=== PATIENT | female | born 1955 | race Caucasian/White ===

== ENCOUNTER → 2016-06-07 | Day surgery (SDC) | payer OTHER ==
[~2016-06-07] VITALS: Ht 154.9 cm; Wt 73.9 kg
[~2016-06-07] MED LIST: TOPROL XL25 M1 PO
--- NOTE | 2016-06-07 17:54 | Operative Report ---
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 The patient has had significant shrinkage of the right breast following surgical intervention for cancer treatment as well as postoperative radiation. She has undergone some reconstruction of the left breast fact grafting technique. She would like to do additional fat grafting in order to build a more natural breast without the need for implants considering her history of radiation. Autologous tissue transfer. Talked about the risks which included but were not limited to infection bleeding pain and numbness in the area of fat harvest loss of fat harvest nipple areola sensibility changes or tissue loss injury to deeper or surrounding structures during live postreduction pin. Once this was agreed to informed consent was Signed. She was marked in the standing position. She was brought to the operating room placed supine on the table. Intravenous antibiotics and anesthesia was started. The abdomen and left breast were prepped and draped in usual sterile fashion. Tumescent fluid was placed in the abdominal wall and liposuction was carried out. The fat was processed and injected into the superficial subcutaneous skin and within the pectoralis major. Approximately 150 mL was placed. As applied to the incisions. Ends dictation
== END ==
LOC: STS 01:27
DX: N65.1 Disproportion of reconstructed breast (principal); C50.912 Malignant neoplasm of unspecified site of left female breast; I10 Essential (primary) hypertension
CPT/HCPCS: J0171; J0690; J2250

== ENCOUNTER → 2016-09-07 | Day surgery (SDC) | payer OTHER ==
[~2016-09-07] VITALS: Ht 154.9 cm; Wt 71.7 kg
--- NOTE | 2016-09-07 09:42 | Operative Report ---
See Addendum Operative/Inv Procedure Report Surgery Date: 09/07/16 Name of Procedure: fat Grafting left breast Pre-Operative Diagnosis: Breast asymmetry (breast status post lumpectomy radiation Post-Operative Diagnosis: Same Estimated Blood Loss: less than 50ml Surgeon/Figure Skater: PINA IDEZ MD Anesthesia: general endotracheal tube Operative/Procedure Note Note: The patient was counseled regards the procedure the alternatives the risks and expected outcomes as relates to her request for surgical intervention to treat breast asymmetry following left-sided lumpectomy and radiation. She has chosen the fat grafting technique. She was told not WILL SURVIVE AND THAT SOME OF THE FACT CAN TURN INTO AND ABSCESS OR COLLECTION THAT WILL REQUIRE REQUIRE DRAINAGE. IN ADDITION IT MIGHT BE DIFFICULT TO DIFFERENTIATE BETWEEN FAT NECROSIS CALCIFICATIONS AND BREAST CANCER RECURRENCE CALCIFICATIONS AND Prompt Biopsies Being Required. The Patient Is Aware of This. Potentially Made to Minimize Fat Deposition within the Breast Tissue. We Talked about Asymmetries of the Abdominal Wall and the Need for Additional Surgery to Symmetrized the Breast. Once Agreed Informed Consent Was Signed. She Was Taken to the Operating Placed Supine on the Table Venodyne Boots Were Placed. The Abdomen and Left Breasts Were Prepped and Draped in Usual Sterile Fashion. Small Access Sites Were Made in the Groins and the Umbilicus and Tumescent Fluid Was Placed 500 ML Each Side in the Marked Areas. Fat Was Then Harvested in Process. Some Tumescent Fluid Was Placed Superficially within the Breast and Deep. The Fat Was Then Injected into the Superficial Skin Subcutaneous Tissue As Well As within the Muscle Very Carefully. A Total of 260 ML Was Placed in the Incisions Were Closed with Deep Sutures and Glue. End Dictation
== END ==
LOC: STS 02:02
DX: N65.1 Disproportion of reconstructed breast (principal); Z85.3 Personal history of malignant neoplasm of breast; Z92.3 Personal history of irradiation; I10 Essential (primary) hypertension
CPT/HCPCS: J0131; J0171; J0690; J2250